=== PATIENT | male | born 1970 | race Native Hawaiian/Other Pacific Islander ===

== ENCOUNTER 2017-11-20 04:54 | Outpatient (CLI) | payer OTHER ==
[~2017-11-20 04:54] MED LIST: ASPI81TA30 PO; CALC-212 PO; FLAX100010 PO; LISI40TA4 PO; MULT-1074 PO; OMEP20TA5 PO; SYN0.088T PO; VITA-268 PO; VITA100D6 PO; [UNRECOGNIZED DRUG - CODE] PO; [UNRECOGNIZED DRUG - OTHER] PO
== END 2017-11-20 23:59 | disposition home or self-care (01) ==
LOC: DIABETIC 04:54
PROVIDERS: ATTEND Specialist
DX: E11.65 Type 2 diabetes mellitus with hyperglycemia (principal)
CPT/HCPCS: G0108

== ENCOUNTER 2018-02-18 03:45 | Outpatient (CLI) | payer BC | END 2018-02-18 23:59 | disposition home or self-care (01) | LOC: DIABETIC 03:45 | PROVIDERS: ATTEND Specialist | DX: E11.65 Type 2 diabetes mellitus with hyperglycemia (principal); I10 Essential (primary) hypertension; Z79.899 Other long term (current) drug therapy; Z79.82 Long term (current) use of aspirin; Z91.013 Allergy to seafood | CPT/HCPCS: G0108 ==